=== PATIENT | female | born 1950 | race American Indian/Alaskan Native ===

== ENCOUNTER 2019-05-30 15:47 | Emergency (ER) | payer MEDICARE ==
[~2019-05-30] VITALS: Ht 165.1 cm; Wt 79.5 kg
[2019-05-30 15:50] VITALS: BP 129/78
[2019-05-30] MEDS ORDERED: ibuprofen tablet 400 MG TABLET PO ONE (16:35)
[2019-05-30] MEDS ORDERED: CLIN300C70 PO (17:23)
== END 2019-05-30 17:32 | disposition home or self-care (01) ==
LOC: ER 15:48
DX: L03.115 Cellulitis of right lower limb (principal); Z88.0 Allergy status to penicillin; Z88.1 Allergy status to other antibiotic agents; Z79.2 Long term (current) use of antibiotics
CPT/HCPCS: 73590; 99284

== ENCOUNTER 2022-12-12 12:20 | Emergency (ER) | payer SELFPAY ==
[~2022-12-12] VITALS: Ht 165.1 cm; Wt 75.0 kg
[2022-12-12 12:23] VITALS: BP 130/80; PULSE 74; RESP 16; TEMP 97.7; O2SAT 96
== END 2022-12-12 13:50 | disposition home or self-care (01) ==
LOC: ER 12:21
DX: S63.502A Unspecified sprain of left wrist, initial encounter (principal); Z88.2 Allergy status to sulfonamides; Z88.8 Allergy status to other drugs, medicaments and biological substances; W19.XXXA Unspecified fall, initial encounter; Y93.89 Activity, other specified; Y92.89 Other specified places as the place of occurrence of the external cause; Y99.8 Other external cause status
CPT/HCPCS: 73110; 99283; A6449

== ENCOUNTER 2023-02-04 09:34 | Emergency (ER) | payer OTHER ==
[~2023-02-04] VITALS: Ht 165.1 cm; Wt 79.2 kg
[2023-02-04] MEDS ORDERED: NAPR-56 PO (10:56)
[2023-02-04] MEDS ORDERED: CYCL-1 PO (10:56)
[2023-02-04 11:03] VITALS: BP 131/94; PULSE 73; RESP 15; TEMP 98.1; O2SAT 97
== END 2023-02-04 11:06 | disposition home or self-care (01) ==
LOC: ER 09:34
DX: S29.012A Strain of muscle and tendon of back wall of thorax, initial encounter (principal); S39.012A Strain of muscle, fascia and tendon of lower back, initial encounter; Z88.1 Allergy status to other antibiotic agents; Z88.8 Allergy status to other drugs, medicaments and biological substances; W19.XXXA Unspecified fall, initial encounter; Y93.01 Activity, walking, marching and hiking; Y92.89 Other specified places as the place of occurrence of the external cause; Y99.8 Other external cause status
CPT/HCPCS: 72050; 72074; 72110; 99284

== ENCOUNTER 2023-04-03 18:35 | Emergency (ER) | payer BC, OTHER ==
[~2023-04-03] VITALS: Ht 160 cm; Wt 81.3 kg
[~2023-04-03 18:35] MED LIST: CYCL-1 PO
[2023-04-03] MEDS ORDERED: IBUP-1984 PO (20:39)
[2023-04-03] MEDS ORDERED: SULF1TAB49 PO (20:39)
[2023-04-03 20:52] VITALS: BP 139/91; PULSE 78; RESP 16; TEMP 98; O2SAT 95
== END 2023-04-03 20:56 | disposition home or self-care (01) ==
LOC: ER 18:35
DX: L03.011 Cellulitis of right finger (principal); Z88.1 Allergy status to other antibiotic agents; Z88.8 Allergy status to other drugs, medicaments and biological substances
CPT/HCPCS: 99283

== ENCOUNTER 2024-01-13 12:17 | Emergency (ER) | payer BC ==
[~2024-01-13] VITALS: Ht 165.1 cm; Wt 62.9 kg
[2024-01-13 15:35] LABS: BASOPHILS # (AUTO) 0.1 X10'3 (0-0.2); BASOPHILS % (AUTO) 0.4 % (0-1); EOSINOPHILS # (AUTO) 0.1 X10'3 (0-0.9); HEMATOCRIT 38.9 % (35.0-45.0); HEMOGLOBIN 13.5 g/dl (12.0-16.0); LYMPHOCYTES # (AUTO) 2.4 X10'3 (1.1-4.8); LYMPHOCYTES % (AUTO) 20.1 % (21-51); MEAN CORPUSCULAR HEMOGLOBIN 31.2 PG (27.0-31.0); MEAN CORPUSCULAR HGB CONC 34.6 g/dL (33.0-36.5); MEAN CORPUSCULAR VOLUME 90.1 FL (78-98); MEAN PLATELET VOLUME 7.5 FL (7.4-10.4); MONOCYTES # (AUTO) 1.2 X10'3 (0-0.9); NEUTROPHILS # (AUTO) 8.2 X10'3 (1.8-7.7); NEUTROPHILS % (AUTO) 68.5 % (42-75); PLATELET COUNT 261 X10'3 (140-440); RED BLOOD COUNT 4.32 X10'6 (4.20-5.60); RED CELL DISTRIBUTION WIDTH 12.9 % (11.5-14.5)
[2024-01-13 15:51] LABS: ALANINE AMINOTRANSFERASE 26 U/L (12-78); ALBUMIN 3.3 G/DL (3.4-5.0); ALBUMIN/GLOBULIN RATIO 0.8 (1.1-1.5); ALKALINE PHOSPHATASE 87 IU/L (46-116); ANION GAP 7 (8-16); ASPARTATE AMINO TRANSFERASE 12 U/L (10-37); BILIRUBIN,TOTAL 0.6 MG/DL (0.1-1.0); BLOOD UREA NITROGEN 9 MG/DL (7-18); BUN/CREATININE RATIO 10.1 (10.0-20.0); CALCIUM 8.7 MG/DL (8.5-10.1); CHLORIDE 103 MMOL/L (99-107); CREATININE 0.89 MG/DL (0.40-0.90); GLUCOSE 268 MG/DL (70-104); POTASSIUM 4.3 MMOL/L (3.5-5.1); SODIUM 138 MMOL/L (135-145); TOTAL CARBON DIOXIDE 28.1 MMOL/L (24-32); TOTAL PROTEIN 7.5 G/DL (6.4-8.2); eCRCL 51 ML/MIN; eGFR 62 ML/MIN
[2024-01-13 15:59] LABS: PRO BRAIN NATRIURETIC PEPTIDE 123 PG/ML (0-125)
[2024-01-13] MEDS ORDERED: DOXY100T2 PO (16:23)
[2024-01-13] MEDS ORDERED: PROM118S5 PO (16:23)
[2024-01-13 16:30] VITALS: BP 136/84; PULSE 91; RESP 22; TEMP 100.1; O2SAT 92
== END 2024-01-13 16:32 | disposition home or self-care (01) ==
LOC: ER 12:17
DX: J06.9 Acute upper respiratory infection, unspecified (principal); J20.9 Acute bronchitis, unspecified; Z88.1 Allergy status to other antibiotic agents; Z79.899 Other long term (current) drug therapy; Z20.822 Contact with and (suspected) exposure to COVID-19
CPT/HCPCS: 36415; 71045; 80053; 83880; 85025; 87502; 87503; 87811; 99284; A4615